=== PATIENT | male | born 1960 ===

== ENCOUNTER → 2023-03-20 08:26 | Outpatient (CLI) | payer OTHER ==
[2023-03-20 09:26] LABS: HEMATOCRIT 45.4 % (39.0-48.0); HEMOGLOBIN 15.6 g/dL (13-16.00); MEAN CELL VOLUME 93.1 fL (80.0-100.00); MEAN CORPUSCULAR HGB CONC 34.4 g/dl (32.0-36.0); PLATELET COUNT 202 K/uL (150-450); RED BLOOD COUNT 4.88 M/uL (4.00-6.00); RED CELL DISTRIBUTION WIDTH 14.1 % (11.5-14.5)
[2023-03-20 09:37] LABS: URINE APPEARANCE Clear; URINE BILIRRUBIN Negative (NEGATIVE); URINE BLOOD Negative; URINE COLOR Yellow; URINE GLUCOSE Negative (NEGATIVE); URINE LEUKOCYTE Negative; URINE NITRATE Negative; URINE PROTEIN Negative (NEGATIVE); URINE UROBILINOGEN 0.2 E.U./dl
[2023-03-20 09:42] LABS: URINE BACTERIA 8.8 uL (0.0-1933); URINE EPITHELIAL CELLS 1.5 uL (0.0-38.8); URINE RBC 2.1 uL (0.0-20.8); URINE WBC 1.8 uL (0.0-23.2)
[2023-03-20 09:51] LABS: INR 0.97; PARTIAL THROMBOPLASTIN TIME 28.6 SECONDS (22.0-34.0); PROTHROMBIN TIME 10.2 SECONDS (9.0-11.5)
[2023-03-20 10:51] LABS: ALBUMIN 3.8 gm/dL (3.4-5.0); BILIRUBIN TOTAL 0.48 mg/dL (0.3-1.2); CALCIUM 9.2 mg/dL (8.5-10.1); CREATININE SERUM 1.24 mg/dL (0.70-1.30); GFR 59.26; GLOBULINA 3.8 G/DL (2.4-3.5); POTASSIUM 5.23 mEq/L (3.5-5.1); T4 FREE 0.9 NG/ML (0.76-1.46); TOTAL PROTEIN 7.6 gm/dL (6.4-8.2); TSH 0.979 uIU/mL (0.358-3.74)
== END | disposition home or self-care (01) ==
LOC: LAB 08:26
DX: D68.8 Other specified coagulation defects (principal); E03.9 Hypothyroidism, unspecified; N40.0 Benign prostatic hyperplasia without lower urinary tract symptoms; E78.5 Hyperlipidemia, unspecified; K76.0 Fatty (change of) liver, not elsewhere classified; R74.9 Abnormal serum enzyme level, unspecified; R76.8 Other specified abnormal immunological findings in serum; K74.69 Other cirrhosis of liver; R11.2 Nausea with vomiting, unspecified

== ENCOUNTER 2023-03-24 07:30 | Outpatient (CLI) | payer OTHER | END 2023-03-24 07:38 | disposition home or self-care (01) | LOC: SONOGRAMA 07:30 | DX: K57.32 Diverticulitis of large intestine without perforation or abscess without bleeding (principal); R10.13 Epigastric pain; R42 Dizziness and giddiness ==